=== PATIENT | female | born 1975 | race Caucasian/White ===

== ENCOUNTER 2017-10-24 06:22 | Inpatient (IN) | payer BC ==
[2017-10-22 10:18] VITALS: BMI 45.5
[~2017-10-24] VITALS: Ht 167.6 cm; Wt 127.9 kg
[2017-10-24] VITALS (21 sets, daily range): BP systolic 105–135; BP diastolic 56–87; PULSE 75–102; RESP 10–20; Ht 167.6 cm; Wt 127.9 kg
[~2017-10-24 06:22] MED LIST: CEFAZOLIN 2 GM/50 ML (PMX) 50 ML IVPB SCH; D5-NS + KCL 20 MEQ 1,000 ML IV SCH; Metronidazole 500 MG in NS 100 ML IVPB SCH
[2017-10-24] MEDS ORDERED: METF500T4 PO (06:58)
[2017-10-24] MEDS ORDERED: FAMO20TA18 PO (06:58)
--- NOTE | 2017-10-24 08:01 | HPN ---
Date/Time of Note Date/Time of Note DATE: 10/24/17 TIME: 08:01 Interval H&P Admission Note Pt. seen H&P reviewed: No system changes YOSEF BALLARD MD Oct 24, 2017 08:01
[2017-10-24] MEDS ORDERED: THROMBIN 5000 UNIT VIAL ONE (08:36)
[2017-10-24] MEDS ORDERED: METHYLENE BLUE 1% 10 ML INJ ONE (08:37)
[2017-10-24] MEDS ORDERED: VASOPRESSIN 20 UNITS INJ ONE (08:37)
[2017-10-24] MEDS ORDERED: ROCURONIUM 50 MG INJ ONE (08:49)
[2017-10-24] MEDS ORDERED: MIDAZOLAM 1 MG/ML 2 ML INJ ONE (08:49)
[2017-10-24] MEDS ORDERED: SUCCINYLCHOLINE CHLORIDE 100 MG/5 ML SYG IV ONE (08:49)
[2017-10-24] MEDS ORDERED: PROPOFOL 100 ML ONE (08:49)
[2017-10-24] MEDS ORDERED: morphine SULFATE/PF (10 MG/10 ML) INJ ONE (08:51)
[2017-10-24] MEDS ORDERED: FENTAnyl 50 MCG/ML VIAL ONE (08:51)
[2017-10-24] MEDS ORDERED: PHENYLephrine (100 MCG/ML) 5ML SYG ONE ×3 (09:28→10:09)
[2017-10-24] MEDS: LACTATED RINGER'S 1,000 ML IV SCH ×2 (09:52→19:52)
--- NOTE | 2017-10-24 09:52 | SIPON ---
Date/Time of Note Date/Time of Note DATE: 10/24/17 TIME: 09:50 Operative Report Preoperative Diagnosis adenomyosis Postoperative Diagnosis path pending Operation/Procedure Performed [facility] Surgeon see signature line nurses assistant MEDICAL LAB SCIENTIST Anesthesia: other Estimated blood loss: 50 - 100 ml's Transfusion Required none Specimen hyst Grafts/Implants none Complications none YOSEF BALLARD MD Oct 24, 2017 09:52
[2017-10-24] MEDS ORDERED: HYDROCODONE/APAP (5/325) TAB PO PRN ×2 (10:00→12:00)
[2017-10-24] MEDS ORDERED: CEFAZOLIN 1 GM in SOD CHLORIDE 0.9% 100 ML IVPB SCH (10:00)
[2017-10-24] MEDS ORDERED: morphine 2 MG INJ IV PRN ×2 (10:00→12:00)
[2017-10-24] MEDS ORDERED: KETOROLAC 15 MG INJ IV PRN (10:00)
[2017-10-24] MEDS: metroNIDAZOLE 500 MG/NS (PMX) 100 ML IVPB SCH ×2 (10:00→19:00)
[2017-10-24] MEDS ORDERED: HETASTARCH 6% NACL 500 ML ONE (11:28)
[2017-10-24] MEDS ORDERED: ACETAMINOPHEN 1000MG/100ML IV 100 ML ONE (11:29)
[2017-10-24] MEDS ORDERED: METOCLOPRAMIDE 10 MG INJ ONE (11:29)
[2017-10-24] MEDS ORDERED: DEXAMETHASONE 4 MG/ML 1 ML INJ ONE (11:29)
[2017-10-24] MEDS ORDERED: ONDANSETRON 4 MG INJ ONE (11:29)
[2017-10-24] MEDS ORDERED: KETOROLAC 30 MG INJ ONE (11:54)
[2017-10-24] MEDS ORDERED: SUGAMMADEX SODIUM 200 MG/2 ML VIAL IV ONE (11:55)
[2017-10-24] MEDS ORDERED: HYDROmorphONE 0.5 MG/0.5 ML SYG IV PRN ×2 (12:00)
[2017-10-24] MEDS ORDERED: NALOXONE (0.4 MG/ML) INJ IV PRN (12:00)
[2017-10-24] MEDS ORDERED: DIPHENHYDRAMINE 50 MG INJ IV PRN (12:00)
[2017-10-24] MEDS ORDERED: ACETAMINOPHEN 500 MG TAB PO PRN (12:00)
[2017-10-24] MEDS ORDERED: ONDANSETRON 4 MG INJ IV PRN (12:00)
[2017-10-24] MEDS ORDERED: morphine 4 MG/ML VIAL IV PRN (12:00)
[2017-10-24] MEDS ORDERED: NALBUPHINE HCL (10 MG/1 ML) INJ IV PRN (12:00)
[2017-10-24 15:15] LABS: BASOPHILS % 0.1 % (0.0-2.0); EOSINOPHILS % 0.2 % (0.0-7.0); HEMATOCRIT 33.9 % (37.0-47.0); HEMOGLOBIN 10.6 g/dl (12.0-16.0); LYMPHOCYTES # 0.9 10^3/ul (0.8-2.9); LYMPHOCYTES % 5.8 % (15.0-51.0); MEAN CORPUSCULAR HGB CONC 31.3 g/dl (32.0-37.0); MEAN CORPUSCULAR VOLUME 89.7 fl (82.0-101.0); MEAN PLATELET VOLUME 8.6 fl (7.4-10.4); MONOCYTE # 0.4 10^3/ul (0.3-0.9); MONOCYTES % 2.5 % (0.0-11.0); NEUTROPHIL # 14.3 10^3/ul (1.6-7.5); NEUTROPHILS % 90.5 % (39.0-77.0); PLATELET COUNT 324 10^3/UL (140-415); RED BLOOD COUNT 3.78 10^6/ul (4.20-5.40); RED CELL DISTRIBUTION WIDTH 12.7 % (11.5-14.5); WHITE BLOOD COUNT 15.8 10^3/ul (4.8-10.8)
[2017-10-24 15:33] LABS: CALCIUM 7.8 mg/dl (8.4-10.2); CREATININE 0.64 mg/dl (0.44-1.00); POTASSIUM 4.2 mmol/L (3.5-5.1)
[2017-10-24] MEDS ORDERED: GLUCOSE GEL 15 GRAM TUBE BUCCAL PRN (17:30)
[2017-10-24] MEDS ORDERED: DEXTROSE 50% 50 ML SYRINGE IV PRN ×2 (17:30)
[2017-10-24] MEDS ORDERED: GLUCOSE GEL 15 GRAM TUBE PO PRN ×2 (17:30)
[2017-10-24] MEDS ORDERED: GLUCAGON 1 MG INJ IM PRN (17:30)
[2017-10-24] MEDS: INSULIN ASPART [NOVOLOG] 3 ML PEN SC SCH ×2 (17:55→21:00)
[2017-10-24] MEDS: CEFAZOLIN 1 GM/50 ML (PMX) 50 ML IVPB SCH (17:58)
--- NOTE | 2017-10-24 20:34 | OPR ---
Date/Time of Note Date/Time of Note DATE: 10/24/17 TIME: 20:31 Operative Report Free Text/Dictation OPERATIVE REPORT [facility] Name: Areli Wiley accomplished #: [id number] Date: 10/24/17 Preoperative Diagnosis: Uterine pain and menorrhagia Postoperative Diagnosis: 1- Uterine enlargement 2- Extensive pelvic adhesions 3- Ureteral stricture Procedures: 1- Laparoscopic subtotal hysterectomy with bilateral salpingoophorectomy 2- Bilateral ureteral dissection with repositioning Surgeon: Dr. Vasques Cooler Supervisor: Dr. DELACRUZ Anaesthesia: General with regional Indications for Procedere: The patient was a 42 year old with a persistent pain and menorrhagia concern brought to the operating room with the intention of a laparoscopic LSH/BS with staging an laparotomy if needed. Findings and Summary: After exploration we noted a an enlarged uterus with probable adenofibrosis and fibroid and other adherent to the sidewall with mass adherent to the sidewall and therefore it was necessary to perform a bilateral ureteral dissection but normal ovaries. Subsequently the LSH/BS was then completed uneventfully with a section of a benign adnexia. Name: Areli Wiley accomplished #: [id number] Procedure: After being prepped and draped in the usual manner a EEA-sizer and pneumo- occluder inserted vaginally. A 5 millimeter trocar was then inserted cephlad to the umbilicus without incident and the abdomen was insufflated to 15 mm of Hg pressure. Subsequently, we placed two 5-millimeter trocars laterally to the umbilicus and also inserted a 12-millimeter trocar suprapubically. At this time any pelvic adhesions were lysed with sharp dissection and the Omni. Subsequently we explored and observed the uterus to be significantly thicked somewhat enlarged and globular. Additionally there was some compromise of the cul-de-sac and over the uterosacral ligaments bilaterally with adhesions and the adnexa had a normal size bilateral. Initially the right round ligament was cauterized and transected with a Gyrus bipolar cutting forceps and the retroperitoneal space opened parallel to the IP ligament. The ureter was identified and required an extensive dissection with repositioning due to both the adnexal mass adherent to the sidewall and the distorting of the anatomy. The ureter was dissected from the broad ligament and pathology with a Omni and endo-dissector bluntly throughout the length to the level of the uterine artery and repositioned laterally allowing the uterine artery to be identified and desiccated with the clipped lateral to the ureter. Subsequently an opening was created in the broad ligament with the ureter visualized and the IP ligament was thoroughly cauterized and then transected with the Thunderbeat. Subsequently the triple pedicle was cauterized and transected with the Thunderbeat after which the adnexia was left in and the fallopian tube removed separately with the Thunderbeat saving the adnexa. At this time, the left round ligament was cauterized and transected with a Thunderbeat and the retroperitoneal spaced opened parallel to the IP ligament as previously done on the contralateral side. The ureter was identified and also required a dissection with repositioning due to the adnexia being adherent to the sidewall distorting the anatomy. The ureter was dissected from the broad ligament with a Omni and endo-dissector bluntly throughout the length to Name: Areli [facility] accomplished #: [id number] the level of the uterine artery and repositioned laterally allowing the uterine artery to be identified and desiccated with the clipped lateral to the ureter with the ureter visualized as done contralaterally. Subsequently the IP ligament was saved, and the triple-pedicle was addressed with the Thunderbeat as the ureter was visualized as both adnexa saved and the ureters mobilized. We then developed the bladder flap uneventfully with the Omni and Gyrus bipolar cutting forceps and blunt dissection. The right uterine artery was transected with a Thunderbeat and the cardinal ligament was transected with a Thunderbeat and Omni. An identical series of steps were taken on the left side. Hence, the uterus was removed from the cervix with the Thunderbeat and hemostasis confirmed. The cervix and the endocervical canal were thoroughly ablated with the argon beam personal finance instructor. The specimen was then removed with a mini-laparotomy and placed in a sac. After irrigating and assuring hemostasis the 12 millimeter trocar was removed and the fascia was closed with multiple 0-vicryl using an endo-close devise. The gas was removed and the skin of all sites then closed with 6-0 Monocryl suture. The EBL was 50 ml and the patient tolerated the procedure well and left the OR in good condition. Andrew Vasques M.D. Preoperative Diagnosis as above Postoperative Diagnosis as above Operation/Procedure Performed as above Surgeon see signature line Cooler Supervisor as above Anesthesia Type: other Estimated Blood Loss: 50 - 100 ml's Transfusion none Specimen as above Grafts/Implants none Tubes/Drains as above Complications none Indications as above Procedure Description as above ANDREW VASQUES MD Oct 24, 2017 20:34
--- NOTE | 2017-10-24 21:25 | HP ---
DATE OF ADMISSION: 10/24/2017 CHIEF COMPLAINT AND HISTORY OF PRESENT ILLNESS: The patient is a 42-year-old female with a history of mild diabetes and esophagitis diagnosed on EGD in 2016. The patient was seen by Dr. Ballard for adenomyosis and underwent laparoscopic supracervical hysterectomy. The patient is being admitted for further evaluation . The patient denies any history of chest pain or shortness of breath. No history of headache, dizziness, syncope. No history of fever or chills. No history of cough. No history of leg edema or any other focal weakness prior to surgeries. No history of recent GI ble ed. Other than the postoperative pain, the rest of review of systems unremarkable. PAST SURGICAL HISTORY: Patient is status post x2. ALLERGIES: NONE. SOCIAL HISTORY: No smoking, no alcohol. FAMILY HISTORY: Noncontributory. PHYSICAL EXAMINATION: GENERAL: The patient to be conscious, awake, alert. VITAL SIGNS: Temperature 98, pulse 79, respirations 20, blood pressure 120/56, O2 saturation 96 on room air. HEENT: No eye discharge or redness. Extraocular movements intact. Oropharynx clear. NECK: No mass. CHEST: Fairly clear. CARDIOVASCULAR: S1, S2 normal, no murmur. ABDOMEN: The patient is status post laparoscopic supracervical hysterectomy. EXTREMITIES: No leg edema. Pedal pulses palpable. SKIN: Without acute rash. NEUROLOGIC: The patient is awake, alert, fairly oriented with no gross focal deficit. LABORATORY DATA: WBC 15.8, hemoglobin 10.6, platelets 224. Sodium 137, potassium 4.2, BUN 8, creat inine 0.6, glucose 129. IMPRESSION: 1. Adenomyosis, status post laparoscopic supracervical hysterectomy. 2. Diabetes. 3. Obesity. The patient's BMI is 45.5. PLAN: Patient admitted on medical floor. Patient was started on clear liquid diet and IV fluids. We will put her on sliding scale insulin. We will continue Glucophage. Patient reported that her h emoglobin A1c had been close to 6 as an outpatient. Her last blood sugar is only 129. We will add sliding scale. We will continue SCDs for DVT prophylaxis. As far as pain is concerned, patient mike l be started on Tylenol, Ava and IV morphine. Further recommendations will depend on patient's ho spital course. We will continue to follow her from a medical standpoint. Dictated By: KAVIN DAVIS/JOSETTE Conf#: [id number] DID#: [id number] CC: YOSEF BALLARD MD;*EndCC*
[2017-10-24] MEDS: FAMOTIDINE 20 MG INJ IV SCH (21:48)
[2017-10-25] MEDS: LACTATED RINGER'S 1,000 ML IV SCH ×4 (01:08→15:35)
[2017-10-25] MEDS: metroNIDAZOLE 500 MG/NS (PMX) 100 ML IVPB SCH (01:08)
[2017-10-25] MEDS: CEFAZOLIN 1 GM/50 ML (PMX) 50 ML IVPB SCH ×2 (01:08→09:40)
[2017-10-25 05:16] LABS: BASOPHILS % 0.2 % (0.0-2.0); EOSINOPHILS # 0.1 10^3/ul (0.0-0.5); EOSINOPHILS % 0.4 % (0.0-7.0); HEMATOCRIT 29.4 % (37.0-47.0); HEMOGLOBIN 9.2 g/dl (12.0-16.0); LYMPHOCYTES # 1.9 10^3/ul (0.8-2.9); LYMPHOCYTES % 15.7 % (15.0-51.0); MEAN CORPUSCULAR HGB CONC 31.3 g/dl (32.0-37.0); MEAN CORPUSCULAR VOLUME 89.6 fl (82.0-101.0); MEAN PLATELET VOLUME 8.9 fl (7.4-10.4); MONOCYTE # 1.2 10^3/ul (0.3-0.9); MONOCYTES % 9.9 % (0.0-11.0); NEUTROPHIL # 8.8 10^3/ul (1.6-7.5); NEUTROPHILS % 72.9 % (39.0-77.0); PLATELET COUNT 295 10^3/UL (140-415); RED BLOOD COUNT 3.28 10^6/ul (4.20-5.40); RED CELL DISTRIBUTION WIDTH 12.7 % (11.5-14.5); WHITE BLOOD COUNT 12.1 10^3/ul (4.8-10.8)
[2017-10-25 05:39] LABS: CALCIUM 7.8 mg/dl (8.4-10.2); CREATININE 0.61 mg/dl (0.44-1.00); POTASSIUM 4.3 mmol/L (3.5-5.1)
[2017-10-25 05:51] LABS: ADD UMIC YES; UR AMORPHOUS CRYSTAL MANY /HPF (NONE SEEN); UR ASCORBIC ACID NEGATIVE (NEGATIVE); UR BACTERIA FEW /HPF (NONE SEEN); UR BILIRUBIN (Dip) NEGATIVE (NEGATIVE); UR BLOOD (Dip) 3+ mg/dL (NEGATIVE); UR CLARITY TURBID (CLEAR); UR COLOR YELLOW (YELLOW); UR GLUCOSE (Dip) NEGATIVE (NEGATIVE); UR KETONES (Dip) NEGATIVE (NEGATIVE); UR LEUKOCYTE ESTERASE (Dip) NEGATIVE Leu/ul (NEGATIVE); UR MUCUS MANY /HPF (NONE SEEN); UR NITRITE (Dip) NEGATIVE (NEGATIVE); UR RBC 101 /HPF (0-5); UR SPECIFIC GRAVITY (Dip) 1.038 (1.003-1.030); UR TOTAL PROTEIN (Dip) 2+ mg/dl (NEGATIVE); UR UROBILINOGEN (Dip) NEGATIVE (NEGATIVE)
[2017-10-25 06:13] VITALS: BP 137/81; PULSE 88; RESP 18
[2017-10-25] MEDS: INSULIN ASPART [NOVOLOG] 3 ML PEN SC SCH ×3 (07:50→17:53)
[2017-10-25 08:18] VITALS: BP 93/51; RESP 18
[2017-10-25] MEDS ORDERED: FAMOTIDINE 20 MG TAB PO SCH (09:00)
[2017-10-25] MEDS: FAMOTIDINE 20 MG INJ IV SCH (09:40)
[2017-10-25] MEDS ORDERED: INFLUENZA VIRUS VACCINE 0.5 ML SYG IM* ONE (11:00)
[2017-10-25] MEDS ORDERED: metFORMIN 500 MG TAB PO SCH (11:10)
[2017-10-25 15:30] VITALS: BP 99/57; RESP 18
[2017-10-25 16:02] LABS: BASOPHILS % 0.3 % (0.0-2.0); EOSINOPHILS # 0.2 10^3/ul (0.0-0.5); EOSINOPHILS % 1.6 % (0.0-7.0); HEMATOCRIT 30.3 % (37.0-47.0); HEMOGLOBIN 9.5 g/dl (12.0-16.0); LYMPHOCYTES # 2.6 10^3/ul (0.8-2.9); LYMPHOCYTES % 23.6 % (15.0-51.0); MEAN CORPUSCULAR HGB CONC 31.4 g/dl (32.0-37.0); MEAN CORPUSCULAR VOLUME 89.4 fl (82.0-101.0); MEAN PLATELET VOLUME 8.8 fl (7.4-10.4); MONOCYTES % 8.8 % (0.0-11.0); NEUTROPHILS % 64.9 % (39.0-77.0); PLATELET COUNT 308 10^3/UL (140-415); RED BLOOD COUNT 3.39 10^6/ul (4.20-5.40); RED CELL DISTRIBUTION WIDTH 12.8 % (11.5-14.5); WHITE BLOOD COUNT 10.8 10^3/ul (4.8-10.8)
--- NOTE | 2017-10-25 16:17 | DS ---
Date/Time of Note Date/Time of Note DATE: 10/25/17 TIME: 16:15 Discharge Summary Admission/Discharge Info Admit Date/Time Oct 25, 2017 at 11:14 Discharge Date/Time Patient Condition: Stable Hx of Present Illness The patient is a 42-year-old female with a history of mild diabetes and esophagitis diagnosed on EGD in 2015. The patient was seen by Dr. Vasques for adenomyosis and underwent laparoscopic supracervical hysterectomy. The patient is being admitted for further evaluation . The patient denies any history of chest pain or shortness of breath. No history of headache, dizziness , syncope. No history of fever or chills. No history of cough. No history of leg edema or any other focal weakness prior to surgeries. No history of recent GI bleed. Other than the postoperative pain, the rest of review of systems unremarkable. Hospital Course Patient discharged home upon clearance from surgery, patient has medications at home given by Dr. Vasques prior to surgery. 1. Adenomyosis, status post laparoscopic supracervical hysterectomy. 2. Diabetes. 3. Obesity. The patient's BMI is 45.5. Home Meds Reported Medications Famotidine* (Famotidine*) 20 Mg Tablet, 20 MG PO DAILY, #30 TAB 10/24/17 Metformin Hcl* (Metformin Hcl*) 500 Mg Tablet, 500 MG PO AC LUNCH, #30 TAB 10/24/17 Discontinued Reported Medications Simvastatin* (Simvastatin*) 5 Mg Tablet, 20 MG PO QHS, #30 TAB 10/22/17 Metformin Hcl* (Metformin Hcl*) 500 Mg Tablet, 500 MG PO WITH BREAKFAST Y for DAILY, #30 TAB 10/22/17 Pantoprazole* (Pantoprazole*) 40 Mg Tablet., 40 MG PO DAILY, TAB 01/02/16 Follow-up Plan Follow-up with Dr. Vasques in 1 week Primary Care Provider Not On Staff Doctor Pending Labs Laboratory Tests Test 10/24/17 17:58 10/24/17 20:25 10/25/17 04:20 10/25/17 04:22 Bedside Glucose 150mg/dL (70-220) 129mg/dL (70-220) Urine Color YELLOW (YELLOW) Urine Clarity TURBID (CLEAR) Urine pH 5.0 (5.0-9.0) Urine Specific [place] 1.038 (1.003-1.030) Urine Ketones NEGATIVEmg/dL (NEGATIVE) Urine Nitrite NEGATIVEmg/dL (NEGATIVE) Urine Bilirubin NEGATIVEmg/dL (NEGATIVE) Urine Urobilinogen NEGATIVEmg/dL (NEGATIVE) Urine Leukocyte Esterase NEGATIVELeu/ul (NEGATIVE) Urine Microscopic RBC 101/HPF (0-5) Urine Microscopic WBC 0/HPF (0-5) Urine Amorphous Crystals MANY/HPF (NONE SEEN) Urine Bacteria FEW/HPF (NONE SEEN) Urine Mucus MANY/HPF (NONE SEEN) Urine Hemoglobin 3+mg/dL (NEGATIVE) Urine Glucose NEGATIVEmg/dL (NEGATIVE) Urine Total Protein 2+mg/dl (NEGATIVE) White Blood Count 12.110^3/ul (4.8-10.8) Red Blood Count 3.2810^6/ul (4.20-5.40) Hemoglobin 9.2g/dl (12.0-16.0) Hematocrit 29.4% (37.0-47.0) Mean Corpuscular Volume 89.6fl (82.0-101.0) Mean Corpuscular Hemoglobin 28.0pg (29.0-33.0) Mean Corpuscular Hemoglobin Concent 31.3g/dl (32.0-37.0) Red Cell Distribution Width 12.7% (11.5-14.5) Platelet Count 67851^3/UL (140-415) Mean Platelet Volume 8.9fl (7.4-10.4) Neutrophils % 72.9% (39.0-77.0) Lymphocytes % 15.7% (15.0-51.0) Monocytes % 9.9% (0.0-11.0) Eosinophils % 0.4% (0.0-7.0) Basophils % 0.2% (0.0-2.0) Nucleated Red Blood Cells % 0.0/100WBC (0.0-0.0) Neutrophils # 8.810^3/ul (1.6-7.5) Lymphocytes # 1.910^3/ul (0.8-2.9) Monocytes # 1.210^3/ul (0.3-0.9) Eosinophils # 0.110^3/ul (0.0-0.5) Basophils # 0.010^3/ul (0.0-0.1) Nucleated Red Blood Cells # 0.010^3/ul (0.0-0.0) Sodium Level 135mmol/L (135-144) Potassium Level 4.3mmol/L (3.5-5.1) Chloride Level 101mmol/L (97-110) Carbon Dioxide Level 29mmol/L (21-31) Anion Gap 9 (8-16) Blood Urea Nitrogen 11mg/dl (7-20) Creatinine 0.61mg/dl (0.44-1.00) Glucose Level 107mg/dl (70-220) Calcium Level 7.8mg/dl (8.4-10.2) Test 10/25/17 08:44 10/25/17 12:38 10/25/17 15:16 Bedside Glucose 101mg/dL (70-220) 97mg/dL (70-220) White Blood Count 10.810^3/ul (4.8-10.8) Red Blood Count 3.3910^6/ul (4.20-5.40) Hemoglobin 9.5g/dl (12.0-16.0) Hematocrit 30.3% (37.0-47.0) Mean Corpuscular Volume 89.4fl (82.0-101.0) Mean Corpuscular Hemoglobin 28.0pg (29.0-33.0) Mean Corpuscular Hemoglobin Concent 31.4g/dl (32.0-37.0) Red Cell Distribution Width 12.8% (11.5-14.5) Platelet Count 00944^3/UL (140-415) Mean Platelet Volume 8.8fl (7.4-10.4) Neutrophils % 64.9% (39.0-77.0) Lymphocytes % 23.6% (15.0-51.0) Monocytes % 8.8% (0.0-11.0) Eosinophils % 1.6% (0.0-7.0) Basophils % 0.3% (0.0-2.0) Nucleated Red Blood Cells % 0.0/100WBC (0.0-0.0) Neutrophils # 7.010^3/ul (1.6-7.5) Lymphocytes # 2.610^3/ul (0.8-2.9) Monocytes # 1.010^3/ul (0.3-0.9) Eosinophils # 0.210^3/ul (0.0-0.5) Basophils # 0.010^3/ul (0.0-0.1) Nucleated Red Blood Cells # 0.010^3/ul (0.0-0.0) TIFFANIE MENDEZ Oct 25, 2017 16:17
--- NOTE | 2017-10-25 19:24 | PN ---
Date/Time of Note Date/Time of Note DATE: 10/25/17 TIME: 19:21 Assessment/Plan VTE Prophylaxis VTE Prophylaxis Intervention: SCD's Lines/Catheters IV Catheter Type (from Nrs): Peripheral IV Urinary Cath still in place: No Assessment/Plan Assessment/Plan A- doing well P- anticipate discharge Subjective 24 Hr Interval Summary Free Text/Dictation Irma diet and + Flatus Exam/Review of Systems Vital Signs Vitals Vital Signs Date Time Temp Pulse Resp B/P Pulse Ox O2 Delivery O2 Flow Rate FiO2 10/25/17 15:30 98.5 87 18 99/57 97 10/25/17 06:13 Mask 10/24/17 22:02 6.0 Intake and Output 10/24/17 10/24/17 10/25/17 15:00 23:00 07:00 Intake Total 1180 ml 840 ml 1750 ml Output Total 325 ml 240 ml 550 ml Balance 855 ml 600 ml 1200 ml Exam Resp- clear CVS- NSR Abd- soft Ext- NT Results Result Diagram: 10/25/17 1516 10/25/17 0422 Results 24 hrs Laboratory Tests Test 10/24/17 20:25 10/25/17 04:20 10/25/17 04:22 10/25/17 08:44 Bedside Glucose 129 101 Urine Color YELLOW Urine Clarity TURBID A Urine pH 5.0 Urine Specific [place] 1.038 H Urine Ketones NEGATIVE Urine Nitrite NEGATIVE Urine Bilirubin NEGATIVE Urine Urobilinogen NEGATIVE Urine Leukocyte Esterase NEGATIVE Urine Microscopic RBC 101 H Urine Microscopic WBC 0 Urine Amorphous Crystals MANY A Urine Bacteria FEW A Urine Mucus MANY A Urine Hemoglobin 3+ H Urine Glucose NEGATIVE Urine Total Protein 2+ H White Blood Count 12.1 #H Red Blood Count 3.28 L Hemoglobin 9.2 L Hematocrit 29.4 L Mean Corpuscular Volume 89.6 Mean Corpuscular Hemoglobin 28.0 L Mean Corpuscular Hemoglobin Concent 31.3 L Red Cell Distribution Width 12.7 Platelet Count 295 Mean Platelet Volume 8.9 Neutrophils % 72.9 Lymphocytes % 15.7 Monocytes % 9.9 Eosinophils % 0.4 Basophils % 0.2 Nucleated Red Blood Cells % 0.0 Neutrophils # 8.8 H Lymphocytes # 1.9 Monocytes # 1.2 H Eosinophils # 0.1 Basophils # 0.0 Nucleated Red Blood Cells # 0.0 Sodium Level 135 Potassium Level 4.3 Chloride Level 101 Carbon Dioxide Level 29 Anion Gap 9 Blood Urea Nitrogen 11 Creatinine 0.61 Glucose Level 107 Calcium Level 7.8 L Test 10/25/17 12:38 10/25/17 15:16 10/25/17 17:31 Bedside Glucose 97 91 White Blood Count 10.8 Red Blood Count 3.39 L Hemoglobin 9.5 L Hematocrit 30.3 L Mean Corpuscular Volume 89.4 Mean Corpuscular Hemoglobin 28.0 L Mean Corpuscular Hemoglobin Concent 31.4 L Red Cell Distribution Width 12.8 Platelet Count 308 Mean Platelet Volume 8.8 Neutrophils % 64.9 Lymphocytes % 23.6 Monocytes % 8.8 Eosinophils % 1.6 Basophils % 0.3 Nucleated Red Blood Cells % 0.0 Neutrophils # 7.0 Lymphocytes # 2.6 Monocytes # 1.0 H Eosinophils # 0.2 Basophils # 0.0 Nucleated Red Blood Cells # 0.0 Medications Medications Current Medications Morphine Sulfate (morphine) 2 mg Q2H PRN IV PAIN LEVEL 6-10; Start 10/24/17 at 10:00 Acetaminophen/ Hydrocodone Bitart ([place] (5/325)) 1 tab Q6H PRN PO PAIN LEVEL 6 -10; Start 10/24/17 at 10:00 Ketorolac Tromethamine (Toradol) 15 mg Q6H PRN IV PAIN; Start 10/24/17 at 10: 00; Stop 10/27/17 at 09:59 Famotidine (Pepcid Iv) 20 mg Q12 IV Last administered on 10/25/17t 09:40; Admin Dose 20 MG; Start 10/24/17 at 21:00 Hydromorphone HCl (Dilaudid) 0.2 mg Q2H PRN IV PAIN LEVEL 1-5; Start 10/24/17 at 12:00 Hydromorphone HCl (Dilaudid) 0.4 mg Q2H PRN IV PAIN LEVEL 6-10; Start at 12:00 Morphine Sulfate (morphine) 2 mg Q2H PRN IV PAIN LEVEL 1-5; Start 10/24/17 at 12:00 Morphine Sulfate (morphine) 4 mg Q2H PRN IV PAIN LEVEL 6-10; Start 10/24/17 at 12:00 Acetaminophen (Tylenol Tab) 500 mg Q4H PRN PO PAIN LEVEL 1-3; Start 10/24/17 at 12:00 Acetaminophen/ Hydrocodone Bitart ([place] (5/325)) 1 tab Q4H PRN PO PAIN LEVEL 4 -6; Start 10/24/17 at 12:00 Diphenhydramine HCl (Benadryl) 25 mg Q4H PRN IV PRURITUS Last administered on 10/24/17t 13:09; Admin Dose 25 MG; Start 10/24/17 at 12:00 Nalbuphine HCl (Nubain) 10 mg Q4H PRN IV PRURITUS; Start 10/24/17 at 12:00 Ondansetron HCl (Zofran Inj) 4 mg Q6H PRN IV NAUSEA AND/OR VOMITING; Start at 12:00 Naloxone HCl (Narcan) 0.2 mg Q2M PRN IV FOR RESP RATE 8 OR LESS; Start at 12:00 Miscellaneous Information 1 ea NOTE XX ; Start 10/24/17 at 17:30 Glucose (Glutose) 15 gm Q15M PRN PO DECREASED GLUCOSE; Start 10/24/17 at 17:30 Glucose (Glutose) 22.5 gm Q15M PRN PO DECREASED GLUCOSE; Start 10/24/17 at 17: 30 Dextrose (D50w Syringe) 25 ml Q15M PRN IV DECREASED GLUCOSE; Start 10/24/17 at 17:30 Dextrose (D50w Syringe) 50 ml Q15M PRN IV DECREASED GLUCOSE; Start 10/24/17 at 17:30 Glucagon (Glucagen) 1 mg Q15M PRN IM DECREASED GLUCOSE; Start 10/24/17 at 17: 30 Glucose (Glutose) 15 gm Q15M PRN BUCCAL DECREASED GLUCOSE; Start 10/24/17 at 17:30 YOSEF BALLARD MD Oct 25, 2017 19:24
== END 2017-10-25 19:30 | disposition home or self-care (01) | DRG 742 ==
LOC: INTOOBSV 06:22 → REC 06:22 → MS1 14:10 → OBSVTOIN 10-25 11:14
PROVIDERS: ATTEND Internal Medicine
PROC: 0UT74ZZ Resection of Bilateral Fallopian Tubes, Percutaneous Endoscopic Approach (ICD-10-PCS; 2017-10-24)
PROC: 0UT24ZZ Resection of Bilateral Ovaries, Percutaneous Endoscopic Approach (ICD-10-PCS; 2017-10-24)
PROC: 0TS84ZZ Reposition Bilateral Ureters, Percutaneous Endoscopic Approach (ICD-10-PCS; 2017-10-24)
PROC: 0UT94ZZ Resection of Uterus, Percutaneous Endoscopic Approach (ICD-10-PCS; principal; 2017-10-24 09:00)
DX: N80.0 Endometriosis of uterus (principal); Z68.42 Body mass index [BMI] 45.0-49.9, adult; N94.89 Other specified conditions associated with female genital organs and menstrual cycle; N13.5 Crossing vessel and stricture of ureter without hydronephrosis; N73.6 Female pelvic peritoneal adhesions (postinfective); E66.9 Obesity, unspecified; E11.9 Type 2 diabetes mellitus without complications
CPT/HCPCS: 80048; 81001; 82962; 84703; 85025; 86850; 86900; 86901; 86920; 87086; 88305; 90686; G0378; J0131; J0690; J1100; J1200; J1644; J1815; J1885; J2250; J2274; J2370; J2405; J2765; J3010; J3480; J7120